=== PATIENT | female | born 1955 | race Caucasian/White ===

== ENCOUNTER 2017-11-24 03:54 | Inpatient (IN) | payer OTHER ==
[2017-11-24] MEDS ORDERED: ALBUTEROL/IPRATROPIUM (NEB) 3 ML AMP HHN (05:00)
[2017-11-24] MEDS ORDERED: NACL 0.9% 3 ML SYG IV (05:00)
[2017-11-24] MEDS ORDERED: ACETAMINOPHEN 325 MG TAB PO (05:00)
[2017-11-24] MEDS: morphine 2 MG INJ IV ×5 (05:04→21:53)
[2017-11-24] MEDS: ONDANSETRON 4 MG INJ IV (05:05)
[2017-11-24] MEDS: DEXTROSE 5%-0.45% NACL 1,000 ML IV ×3 (05:07→16:30)
[2017-11-24] MEDS: PIPER-TAZO 3.375 GM IV (PMX) 100 ML IVPB (05:14)
[2017-11-24] MEDS: INSULIN ASPART [NOVOLOG] 3 ML PEN SC ×5 (05:23→22:00)
[2017-11-24 05:49] LABS: ADD MAN DIFF? NO
[2017-11-24 05:59] LABS: BASOPHIL # 0.1 10^3/ul (0.0-0.1); BASOPHILS % 0.5 % (0.0-2.0); EOSINOPHILS # 0.2 10^3/ul (0.0-0.5); EOSINOPHILS % 1.4 % (0.0-7.0); HEMATOCRIT 37.8 % (37.0-47.0); HEMOGLOBIN 12.8 g/dl (12.0-16.0); LYMPHOCYTES # 2.7 10^3/ul (0.8-2.9); LYMPHOCYTES % 24.7 % (15.0-51.0); MEAN CORPUSCULAR HEMOGLOBIN 31.8 pg (29.0-33.0); MEAN CORPUSCULAR HGB CONC 33.9 g/dl (32.0-37.0); MEAN CORPUSCULAR VOLUME 93.8 fl (82.0-101.0); MEAN PLATELET VOLUME 11.5 fl (7.4-10.4); MONOCYTE # 0.9 10^3/ul (0.3-0.9); MONOCYTES % 8.2 % (0.0-11.0); NEUTROPHIL # 7.1 10^3/ul (1.6-7.5); NEUTROPHILS % 64.7 % (39.0-77.0); PLATELET COUNT 210 10^3/UL (140-415); RED BLOOD COUNT 4.03 10^6/ul (4.20-5.40)
[2017-11-24 06:15] LABS: ALANINE AMINOTRANSFERASE 26 IU/L (13-69); ALBUMIN 3.6 g/dl (3.3-4.9); ALKALINE PHOSPHATASE 76 IU/L (42-121); ANION GAP 10 (8-16); ASPARTATE AMINO TRANSFERASE 18 IU/L (15-46); BILIRUBIN,INDIRECT 0.4 mg/dl (0-1.1); BILIRUBIN,TOTAL 0.4 mg/dl (0.2-1.3); BLOOD UREA NITROGEN 7 mg/dl (7-20); CARBON DIOXIDE 29 mmol/L (21-31); CHLORIDE 103 mmol/L (97-110); CREATININE 0.56 mg/dl (0.44-1.00); GLUCOSE 246 mg/dl (70-220); MAGNESIUM 1.7 mg/dl (1.7-2.5); PHOSPHORUS 4.6 mg/dl (2.5-4.9); SODIUM 138 mmol/L (135-144); TOTAL PROTEIN 6.6 g/dl (6.1-8.1)
[2017-11-24 06:33] LABS: HEMOGLOBIN A1C 8.3 % (0-5.9)
[2017-11-24] MEDS: FAMOTIDINE 20 MG INJ IV ×2 (09:36→21:53)
[2017-11-24] MEDS: INSULIN GLARGINE [LANtus] 3 ML PEN SC ×2 (11:00→21:57)
[2017-11-24] MEDS: ERTAPENEM SODIUM 1 GM in SOD CHLORIDE 0.9% 100 ML IVPB (12:55)
[2017-11-24] MEDS ORDERED: INSULIN GLARGINE [LANtus] 3 ML PEN SC (20:00)
[2017-11-24] MEDS: ACCU-CHEK XX (20:04)
[2017-11-25] MEDS: DEXTROSE 5%-0.45% NACL 1,000 ML IV ×3 (01:33→20:17)
[2017-11-25] MEDS: morphine 2 MG INJ IV ×4 (01:34→20:17)
[2017-11-25] MEDS: INSULIN ASPART [NOVOLOG] 3 ML PEN SC ×6 (01:40→20:20)
[2017-11-25 07:15] LABS: ADD MAN DIFF? NO
[2017-11-25 07:18] LABS: BASOPHIL # 0.1 10^3/ul (0.0-0.1); BASOPHILS % 0.6 % (0.0-2.0); EOSINOPHILS # 0.2 10^3/ul (0.0-0.5); EOSINOPHILS % 2.6 % (0.0-7.0); HEMATOCRIT 38.2 % (37.0-47.0); LYMPHOCYTES # 3.1 10^3/ul (0.8-2.9); LYMPHOCYTES % 37.7 % (15.0-51.0); MEAN CORPUSCULAR HEMOGLOBIN 32.6 pg (29.0-33.0); MEAN CORPUSCULAR VOLUME 95.7 fl (82.0-101.0); MEAN PLATELET VOLUME 11.8 fl (7.4-10.4); MONOCYTE # 0.8 10^3/ul (0.3-0.9); MONOCYTES % 9.8 % (0.0-11.0); NEUTROPHILS % 48.8 % (39.0-77.0); PLATELET COUNT 217 10^3/UL (140-415); RED BLOOD COUNT 3.99 10^6/ul (4.20-5.40); RED CELL DISTRIBUTION WIDTH 11.9 % (11.5-14.5)
[2017-11-25 07:18] LABS: WHITE BLOOD COUNT 8.2 10^3/ul (4.8-10.8)
[2017-11-25 07:43] LABS: ANION GAP 10 (8-16); BLOOD UREA NITROGEN 4 mg/dl (7-20); CALCIUM 8.8 mg/dl (8.4-10.2); CARBON DIOXIDE 30 mmol/L (21-31); CHLORIDE 106 mmol/L (97-110); GLUCOSE 142 mg/dl (70-220); MAGNESIUM 1.9 mg/dl (1.7-2.5); POTASSIUM 3.7 mmol/L (3.5-5.1); SODIUM 142 mmol/L (135-144)
[2017-11-25] MEDS: FAMOTIDINE 20 MG INJ IV ×2 (09:26→20:17)
[2017-11-25] MEDS: ERTAPENEM SODIUM 1 GM in SOD CHLORIDE 0.9% 100 ML IVPB (11:33)
[2017-11-25] MEDS: ACCU-CHEK XX (19:39)
[2017-11-25] MEDS: INSULIN GLARGINE [LANtus] 3 ML PEN SC (20:20)
[2017-11-26] MEDS: morphine 2 MG INJ IV ×3 (01:31→20:15)
[2017-11-26] MEDS: INSULIN ASPART [NOVOLOG] 3 ML PEN SC ×3 (01:41→08:19)
[2017-11-26 05:57] LABS: ADD MAN DIFF? NO
[2017-11-26 06:02] LABS: BASOPHILS % 0.4 % (0.0-2.0); EOSINOPHILS # 0.2 10^3/ul (0.0-0.5); EOSINOPHILS % 2.6 % (0.0-7.0); HEMATOCRIT 37.7 % (37.0-47.0); HEMOGLOBIN 12.9 g/dl (12.0-16.0); LYMPHOCYTES # 2.8 10^3/ul (0.8-2.9); LYMPHOCYTES % 35.6 % (15.0-51.0); MEAN CORPUSCULAR HEMOGLOBIN 32.1 pg (29.0-33.0); MEAN CORPUSCULAR HGB CONC 34.2 g/dl (32.0-37.0); MEAN CORPUSCULAR VOLUME 93.8 fl (82.0-101.0); MEAN PLATELET VOLUME 10.9 fl (7.4-10.4); MONOCYTE # 0.8 10^3/ul (0.3-0.9); MONOCYTES % 10.2 % (0.0-11.0); NEUTROPHILS % 50.7 % (39.0-77.0); PLATELET COUNT 209 10^3/UL (140-415); RED BLOOD COUNT 4.02 10^6/ul (4.20-5.40)
[2017-11-26 06:02] LABS: WHITE BLOOD COUNT 7.8 10^3/ul (4.8-10.8)
[2017-11-26 06:36] LABS: PHOSPHORUS 4.8 mg/dl (2.5-4.9)
[2017-11-26 06:36] LABS: MAGNESIUM 1.9 mg/dl (1.7-2.5)
[2017-11-26 06:37] LABS: ALANINE AMINOTRANSFERASE 19 IU/L (13-69); ALBUMIN 3.5 g/dl (3.3-4.9); ALBUMIN/GLOBULIN RATIO 1.12; ALKALINE PHOSPHATASE 65 IU/L (42-121); ANION GAP 14 (8-16); ASPARTATE AMINO TRANSFERASE 24 IU/L (15-46); BILIRUBIN,INDIRECT 0.4 mg/dl (0-1.1); BILIRUBIN,TOTAL 0.4 mg/dl (0.2-1.3); BLOOD UREA NITROGEN 3 mg/dl (7-20); CALCIUM 8.7 mg/dl (8.4-10.2); CARBON DIOXIDE 27 mmol/L (21-31); CHLORIDE 107 mmol/L (97-110); CREATININE 0.63 mg/dl (0.44-1.00); GLUCOSE 142 mg/dl (70-220); POTASSIUM 3.7 mmol/L (3.5-5.1); SODIUM 144 mmol/L (135-144); TOTAL PROTEIN 6.6 g/dl (6.1-8.1)
[2017-11-26] MEDS: DEXTROSE 5%-0.45% NACL 1,000 ML IV ×2 (06:41→18:08)
[2017-11-26] MEDS: FAMOTIDINE 20 MG INJ IV ×2 (08:18→20:30)
[2017-11-26] MEDS: ERTAPENEM SODIUM 1 GM in SOD CHLORIDE 0.9% 100 ML IVPB (10:51)
[2017-11-26] MEDS ORDERED: INSULIN ASPART [NOVOLOG] 3 ML PEN SC (12:00)
[2017-11-26] MEDS: Insulin NOVOLOG SS MODERATE Algorithm (SS with meals and bedtime) SC ×3 (12:27→20:32)
[2017-11-26] MEDS: INSULIN GLARGINE [LANtus] 3 ML PEN SC (20:33)
[2017-11-27] MEDS: ACCU-CHEK XX ×3 (01:15→22:34)
[2017-11-27] MEDS: DEXTROSE 5%-0.45% NACL 1,000 ML IV ×3 (04:00→14:24)
[2017-11-27] MEDS: FAMOTIDINE 20 MG INJ IV ×2 (08:15→20:09)
[2017-11-27] MEDS: Insulin NOVOLOG SS MODERATE Algorithm (SS with meals and bedtime) SC ×4 (08:17→20:09)
[2017-11-27] MEDS ORDERED: DOCUSATE SODIUM 100 MG CAP PO (09:00)
[2017-11-27] MEDS ORDERED: MAGNESIUM HYDROXIDE 30ML CUP PO (09:00)
[2017-11-27] MEDS: MAGNESIUM HYDROXIDE 30ML CUP PO (09:30)
[2017-11-27] MEDS: morphine 2 MG INJ IV ×2 (09:30→20:11)
[2017-11-27] MEDS: ERTAPENEM SODIUM 1 GM in SOD CHLORIDE 0.9% 100 ML IVPB (10:36)
[2017-11-27] MEDS: INSULIN GLARGINE [LANtus] 3 ML PEN SC (20:14)
[2017-11-28] MEDS: DEXTROSE 5%-0.45% NACL 1,000 ML IV ×2 (00:06→10:28)
[2017-11-28] MEDS: MAGNESIUM HYDROXIDE 30ML CUP PO (08:14)
[2017-11-28] MEDS: FAMOTIDINE 20 MG INJ IV (08:14)
[2017-11-28] MEDS: Insulin NOVOLOG SS MODERATE Algorithm (SS with meals and bedtime) SC ×2 (08:20→12:21)
[2017-11-28] MEDS: ERTAPENEM SODIUM 1 GM in SOD CHLORIDE 0.9% 100 ML IVPB (10:28)
== END 2017-11-28 14:14 | disposition home or self-care (01) | DRG 392 ==
LOC: MS2 03:54
PROVIDERS: Internal Medicine
DX: K57.32 Diverticulitis of large intestine without perforation or abscess without bleeding (principal); E11.65 Type 2 diabetes mellitus with hyperglycemia; K59.00 Constipation, unspecified; R91.1 Solitary pulmonary nodule
CPT/HCPCS: 80048; 80053; 82962; 83036; 83735; 84100; 85025; 87045

== ENCOUNTER 2017-12-02 14:36 | Outpatient (CLI) | payer OTHER | END 2017-12-02 15:49 | disposition home or self-care (01) | LOC: DCC 14:36 | DX: K57.92 Diverticulitis of intestine, part unspecified, without perforation or abscess without bleeding (principal); E11.8 Type 2 diabetes mellitus with unspecified complications; R91.1 Solitary pulmonary nodule | CPT/HCPCS: G0463 ==

== ENCOUNTER 2017-12-16 14:48 | Outpatient (CLI) | payer OTHER | END 2017-12-16 14:57 | disposition home or self-care (01) | LOC: DCC 14:48 | DX: R91.1 Solitary pulmonary nodule (principal); Z79.84 Long term (current) use of oral hypoglycemic drugs; Z79.82 Long term (current) use of aspirin | CPT/HCPCS: G0463 ==

== ENCOUNTER 2018-06-17 06:56 | Day surgery (SDC) | payer OTHER ==
[~2018-06-17 06:56] MED LIST: SOD CHLORIDE 0.9% 1,000 ML IV
[2018-06-17] MEDS ORDERED: LIDOCAINE 2% (SDV) 5 ML INJ (07:00)
[2018-06-17] MEDS ORDERED: PROPOFOL 100 ML (11:10)
[2018-06-17] MEDS ORDERED: FENTAnyl 50 MCG/ML VIAL (11:12)
[2018-06-17] MEDS: BUPIVACAINE 0.25% (MPF) 30 ML INJ (11:44)
[2018-06-17] MEDS ORDERED: CEFAZOLIN 1 GM INJ (11:46)
[2018-06-17] MEDS ORDERED: DEXAMETHASONE 4 MG/ML 1 ML INJ (11:46)
[2018-06-17] MEDS ORDERED: ONDANSETRON 4 MG INJ (11:47)
[2018-06-17] MEDS ORDERED: HYDROCODONE/APAP (5/325) TAB PO (12:00)
[2018-06-17] MEDS: CEFAZOLIN 2 GM/50 ML (PMX) 50 ML IVPB (12:13)
[2018-06-17] MEDS: METOCLOPRAMIDE 10 MG INJ IV (12:19)
[2018-06-17] MEDS: KETOROLAC 30 MG INJ IV (12:19)
[2018-06-17] MEDS ORDERED: LABETALOL HCL 20MG INJ IV (12:30)
[2018-06-17] MEDS ORDERED: HYDROmorphONE 1 MG/5 ML IV SYRINGE IV ×3 (12:30)
[2018-06-17] MEDS: OXYCODONE/ACETAMINOPHEN (5/325) TAB PO (12:30)
[2018-06-17] MEDS ORDERED: FENTAnyl 50 MCG/ML VIAL IV ×3 (12:30)
[2018-06-17] MEDS ORDERED: MIDAZOLAM 1 MG/ML 2 ML INJ IV (12:30)
[2018-06-17] MEDS ORDERED: EPHEDrine SULFATE 50 MG/5 ML SYG IV (12:30)
[2018-06-17] MEDS ORDERED: ALBUTEROL 0.083% (NEB) 2.5 MG/3 ML AMP HHN (12:30)
[2018-06-17] MEDS ORDERED: DIPHENHYDRAMINE 50 MG INJ IV (12:30)
[2018-06-17] MEDS ORDERED: MEPERIDINE 25 MG INJ IV (12:30)
[2018-06-17] MEDS ORDERED: ONDANSETRON 4 MG INJ IV (12:30)
[2018-06-17] MEDS ORDERED: OXYCODONE/ACETAMINOPHEN (5/325) TAB PO (12:30)
[2018-06-17] MEDS ORDERED: hydrALAzine 20 MG INJ IV (12:30)
== END 2018-06-17 13:25 | disposition home or self-care (01) ==
LOC: SDS 06:56
DX: D17.21 Benign lipomatous neoplasm of skin and subcutaneous tissue of right arm (principal); E11.9 Type 2 diabetes mellitus without complications
CPT/HCPCS: 14021; 82962; 88307

== ENCOUNTER 2018-10-08 12:56 | Emergency (ER) | payer OTHER ==
[2018-10-08] MEDS: IPRATROPIUM (NEB) 0.5 MG/2.5 ML AMP INH (16:34)
[2018-10-08] MEDS: ALBUTEROL 0.5% (NEB) 2.5 MG/0.5 ML AMP INH ×2 (16:34→19:11)
[2018-10-08] MEDS: KETOROLAC 60 MG INJ IM (18:21)
[2018-10-08] MEDS: DEXAMETHASONE 10 MG/ML 1 ML INJ IM (18:21)
== END 2018-10-08 20:48 | disposition home or self-care (01) ==
LOC: FTE 20:48
DX: J06.9 Acute upper respiratory infection, unspecified (principal); E11.9 Type 2 diabetes mellitus without complications
CPT/HCPCS: 71045; 82962; 87400; 94644; 94645; 96372; 99284-25

== ENCOUNTER 2018-11-21 18:09 | Observation (INO) | payer OTHER ==
[2018-11-21 19:36] LABS: ADD MAN DIFF? NO
[2018-11-21 19:41] LABS: WHITE BLOOD COUNT 12.4 10^3/ul (4.8-10.8)
[2018-11-21 19:41] LABS: BASOPHILS % 0.3 % (0.0-2.0); EOSINOPHILS # 0.2 10^3/ul (0.0-0.5); EOSINOPHILS % 1.9 % (0.0-7.0); HEMATOCRIT 37.6 % (37.0-47.0); HEMOGLOBIN 12.5 g/dl (12.0-16.0); LYMPHOCYTES # 3.8 10^3/ul (0.8-2.9); LYMPHOCYTES % 30.4 % (15.0-51.0); MEAN CORPUSCULAR HEMOGLOBIN 29.6 pg (29.0-33.0); MEAN CORPUSCULAR HGB CONC 33.2 g/dl (32.0-37.0); MEAN CORPUSCULAR VOLUME 88.9 fl (82.0-101.0); MEAN PLATELET VOLUME 11.7 fl (7.4-10.4); MONOCYTE # 1.1 10^3/ul (0.3-0.9); MONOCYTES % 8.9 % (0.0-11.0); NEUTROPHIL # 7.2 10^3/ul (1.6-7.5); PLATELET COUNT 202 10^3/UL (140-415); RED BLOOD COUNT 4.23 10^6/ul (4.20-5.40); RED CELL DISTRIBUTION WIDTH 12.9 % (11.5-14.5)
[2018-11-21 20:10] LABS: ANION GAP 11 (5-13); BLOOD UREA NITROGEN 15 mg/dl (7-20); CALCIUM 10.1 mg/dl (8.4-10.2); CARBON DIOXIDE 28 mmol/L (21-31); CHLORIDE 101 mmol/L (97-110); CREATININE 0.57 mg/dl (0.44-1.00); Estimated GFR > 60 mL/min (>60); GLUCOSE 104 mg/dl (70-220); POTASSIUM 4.1 mmol/L (3.5-5.1); SODIUM 140 mmol/L (135-144)
[2018-11-21 20:22] LABS: TROPONIN-I < 0.012 ng/ml (0.000-0.120)
[2018-11-21] MEDS: ASPIRIN 81 MG TAB PO (21:01)
[2018-11-21] MEDS: NITROGLYCERIN 2% 1 GM OINT PKT TD (21:01)
[2018-11-22] MEDS ORDERED: ONDANSETRON 4 MG INJ IV (00:30)
[2018-11-22] MEDS ORDERED: ALBUTEROL/IPRATROPIUM (NEB) 3 ML AMP HHN (00:30)
[2018-11-22] MEDS ORDERED: BENZONATATE 100 MG CAP PO (00:30)
[2018-11-22] MEDS ORDERED: ALBUTEROL HFA 8 GM INHALER INH (00:30)
[2018-11-22] MEDS ORDERED: NACL 0.9% 3 ML SYG IV (00:30)
[2018-11-22] MEDS ORDERED: DEXTROSE 50% 50 ML SYRINGE IV ×2 (02:00)
[2018-11-22] MEDS ORDERED: GLUCOSE GEL 15 GRAM TUBE BUCCAL (02:00)
[2018-11-22] MEDS ORDERED: GLUCOSE GEL 15 GRAM TUBE PO ×2 (02:00)
[2018-11-22] MEDS ORDERED: GLUCAGON 1 MG INJ IM (02:00)
[2018-11-22 02:01] LABS: CREATINE KINASE 71 IU/L (23-200)
[2018-11-22 02:14] LABS: CK INDEX 0.5; CK-MB 0.35 ng/ml (0.0-2.4); TROPONIN-I < 0.012 ng/ml (0.000-0.120)
[2018-11-22] MEDS: NITROGLYCERIN (SL) 0.4 MG TAB SL ×2 (02:55→07:31)
[2018-11-22] MEDS: PANTOPRAZOLE (EC) 40 MG TAB PO (05:24)
[2018-11-22 05:45] LABS: ADD MAN DIFF? NO
[2018-11-22 05:50] LABS: BASOPHILS % 0.3 % (0.0-2.0); EOSINOPHILS # 0.2 10^3/ul (0.0-0.5); EOSINOPHILS % 1.8 % (0.0-7.0); HEMATOCRIT 36.4 % (37.0-47.0); HEMOGLOBIN 12.2 g/dl (12.0-16.0); LYMPHOCYTES # 3.1 10^3/ul (0.8-2.9); LYMPHOCYTES % 26.6 % (15.0-51.0); MEAN CORPUSCULAR HEMOGLOBIN 29.5 pg (29.0-33.0); MEAN CORPUSCULAR HGB CONC 33.5 g/dl (32.0-37.0); MEAN CORPUSCULAR VOLUME 88.1 fl (82.0-101.0); MEAN PLATELET VOLUME 11.9 fl (7.4-10.4); NEUTROPHIL # 7.1 10^3/ul (1.6-7.5); NEUTROPHILS % 61.7 % (39.0-77.0); PLATELET COUNT 190 10^3/UL (140-415); RED BLOOD COUNT 4.13 10^6/ul (4.20-5.40)
[2018-11-22 05:50] LABS: WHITE BLOOD COUNT 11.6 10^3/ul (4.8-10.8)
[2018-11-22 06:16] LABS: ALANINE AMINOTRANSFERASE 23 IU/L (13-69); ALBUMIN 4.1 g/dl (3.3-4.9); ALBUMIN/GLOBULIN RATIO 1.32; ALKALINE PHOSPHATASE 72 IU/L (42-121); ANION GAP 10 (5-13); ASPARTATE AMINO TRANSFERASE 26 IU/L (15-46); BILIRUBIN,INDIRECT 0.4 mg/dl (0-1.1); BILIRUBIN,TOTAL 0.4 mg/dl (0.2-1.3); BLOOD UREA NITROGEN 12 mg/dl (7-20); CALCIUM 9.6 mg/dl (8.4-10.2); CARBON DIOXIDE 27 mmol/L (21-31); CHLORIDE 104 mmol/L (97-110); CHOL/HDL RATIO 3.9 RATIO; CHOLESTEROL 153 mg/dl (100-200); CREATININE 0.53 mg/dl (0.44-1.00); Estimated GFR > 60 mL/min (>60); GLUCOSE 115 mg/dl (70-220); HDL CHOLESTEROL 39 mg/dl (35-98); LDL CHOLESTEROL,CALCULATED 71 mg/dl; MAGNESIUM 1.9 mg/dl (1.7-2.5); POTASSIUM 3.6 mmol/L (3.5-5.1); SODIUM 141 mmol/L (135-144); TOTAL PROTEIN 7.2 g/dl (6.1-8.1); TRIGLYCERIDES 217 mg/dl (0-149)
[2018-11-22] MEDS: ACCU-CHEK XX ×4 (06:45→20:44)
[2018-11-22] MEDS: ACETAMINOPHEN 325 MG TAB PO ×2 (07:17→19:35)
[2018-11-22] MEDS: metFORMIN 500 MG TAB PO ×2 (08:12→17:38)
[2018-11-22 08:16] LABS: CREATINE KINASE 61 IU/L (23-200)
[2018-11-22 08:26] LABS: CK INDEX 0.4; CK-MB 0.27 ng/ml (0.0-2.4); TROPONIN-I < 0.012 ng/ml (0.000-0.120)
[2018-11-22 09:24] LABS: HEMOGLOBIN A1C 8.2 % (0-5.9)
[2018-11-22] MEDS: ASPIRIN 81 MG TAB PO (09:42)
[2018-11-22] MEDS: LINAGLIPTIN 5 MG TABLET PO (09:42)
[2018-11-22] MEDS: HEPARIN 5,000 UNIT/1 ML VIAL SC ×2 (09:45→21:21)
[2018-11-22] MEDS: LORATADINE 10 MG TAB PO (11:33)
[2018-11-22] MEDS: DICLOFENAC SODIUM 1% GEL 100 GM TUBE TP ×2 (11:34→21:08)
[2018-11-22] MEDS: INSULIN ASPART [NOVOLOG] 3 ML PEN SC ×3 (13:55→20:43)
[2018-11-22 16:17] LABS: ADD UMIC NO; UR ASCORBIC ACID NEGATIVE (NEGATIVE); UR BILIRUBIN (Dip) NEGATIVE (NEGATIVE); UR BLOOD (Dip) NEGATIVE (NEGATIVE); UR CLARITY CLEAR (CLEAR); UR COLOR COLORLESS (YELLOW); UR GLUCOSE (Dip) NEGATIVE (NEGATIVE); UR KETONES (Dip) NEGATIVE (NEGATIVE); UR LEUKOCYTE ESTERASE (Dip) NEGATIVE Leu/ul (NEGATIVE); UR NITRITE (Dip) NEGATIVE (NEGATIVE); UR SPECIFIC GRAVITY (Dip) 1.003 (1.003-1.030); UR TOTAL PROTEIN (Dip) NEGATIVE (NEGATIVE); UR UROBILINOGEN (Dip) NEGATIVE (NEGATIVE)
[2018-11-23] MEDS: ACCU-CHEK XX ×4 (02:00→16:53)
[2018-11-23] MEDS: PANTOPRAZOLE (EC) 40 MG TAB PO (06:42)
[2018-11-23 07:01] LABS: ADD MAN DIFF? NO
[2018-11-23 07:09] LABS: BASOPHILS % 0.4 % (0.0-2.0); EOSINOPHILS # 0.2 10^3/ul (0.0-0.5); EOSINOPHILS % 1.9 % (0.0-7.0); HEMOGLOBIN 12.7 g/dl (12.0-16.0); LYMPHOCYTES # 2.9 10^3/ul (0.8-2.9); LYMPHOCYTES % 29.9 % (15.0-51.0); MEAN CORPUSCULAR HEMOGLOBIN 29.5 pg (29.0-33.0); MEAN CORPUSCULAR HGB CONC 33.4 g/dl (32.0-37.0); MEAN CORPUSCULAR VOLUME 88.2 fl (82.0-101.0); MEAN PLATELET VOLUME 11.9 fl (7.4-10.4); MONOCYTE # 0.9 10^3/ul (0.3-0.9); MONOCYTES % 9.5 % (0.0-11.0); NEUTROPHIL # 5.7 10^3/ul (1.6-7.5); NEUTROPHILS % 57.7 % (39.0-77.0); PLATELET COUNT 185 10^3/UL (140-415); RED BLOOD COUNT 4.31 10^6/ul (4.20-5.40); RED CELL DISTRIBUTION WIDTH 12.8 % (11.5-14.5)
[2018-11-23 07:09] LABS: WHITE BLOOD COUNT 9.8 10^3/ul (4.8-10.8)
[2018-11-23 07:28] LABS: ANION GAP 8 (5-13); BLOOD UREA NITROGEN 15 mg/dl (7-20); CALCIUM 9.6 mg/dl (8.4-10.2); CARBON DIOXIDE 29 mmol/L (21-31); CHLORIDE 102 mmol/L (97-110); CREATININE 0.67 mg/dl (0.44-1.00); Estimated GFR > 60 mL/min (>60); GLUCOSE 159 mg/dl (70-220); MAGNESIUM 1.9 mg/dl (1.7-2.5); PHOSPHORUS 4.5 mg/dl (2.5-4.9); POTASSIUM 3.9 mmol/L (3.5-5.1); SODIUM 139 mmol/L (135-144)
[2018-11-23] MEDS: INSULIN ASPART [NOVOLOG] 3 ML PEN SC ×3 (08:01→16:55)
[2018-11-23] MEDS: LINAGLIPTIN 5 MG TABLET PO (08:34)
[2018-11-23] MEDS: metFORMIN 500 MG TAB PO ×2 (08:34→16:55)
[2018-11-23] MEDS: LORATADINE 10 MG TAB PO (08:34)
[2018-11-23] MEDS: DICLOFENAC SODIUM 1% GEL 100 GM TUBE TP (08:35)
[2018-11-23] MEDS: ASPIRIN 81 MG TAB PO (08:35)
[2018-11-23] MEDS: HEPARIN 5,000 UNIT/1 ML VIAL SC (08:58)
== END 2018-11-23 16:51 | disposition home or self-care (01) ==
LOC: E/R 18:09 → MS3 20:49 → TEL 11-22 18:30
PROVIDERS: Internal Medicine
DX: R07.9 Chest pain, unspecified (principal); E11.9 Type 2 diabetes mellitus without complications; Z79.84 Long term (current) use of oral hypoglycemic drugs; Z79.82 Long term (current) use of aspirin
CPT/HCPCS: 36415; 71045; 80048; 80053; 80061; 81003; 82550; 82553; 82962; 83036; 83735; 84100; 84443; 84484; 85025; 93005; 93306; 99217; 99285-25